=== PATIENT | female | born 1980 | race African-American/Black ===

== ENCOUNTER 2021-10-10 11:11 | Emergency (ER) | payer BC ==
[2021-10-10 11:47] LABS: #Basophils 0.1 10x3/uL (0.0-0.2); #Eosinphils 0.1 10x3/uL (0.0-0.5); #Monocytes 0.9 10x3/uL (0.0-1.1); #Neutrophils 5.3 10x3/uL (1.5-8.4); %Basophils 0.9 % (0.0-2.0); %Eosinophils 1.1 % (0.0-6.0); %Lymphocytes 20.8 % (18.0-47.0); %Monocytes 11.1 % (0.0-10.0); %Neutrophils 65.9 % (40.0-75.0); Hemoglobin 13.5 g/dL (12.0-15.5); Mean Corpuscular HGB CONC 32.8 g/dL (32.0-36.0); Mean Corpuscular Hemoglobin 27.8 pg (27.0-33.0); Mean Corpuscular Volume 84.8 fl (81.6-98.3); Mean Platelet Volume 9.3 fl (7.4-10.4); Platelet Count 306 10x3/uL (150-450); RBC Distribution Width 13.5 % (11.5-14.5); Red Blood Cell (RBC) Count 4.86 10x6/uL (3.90-5.03)
[2021-10-10 12:07] LABS: ALT (SGPT) 16 U/L (8-55); AST (SGOT) 15 U/L (5-34); Albumin 4.3 g/dL (3.5-5.0); Alkaline Phosphatase 79 U/L (40-110); Anion Gap 13 mmol/L (10-20); BUN (Urea Nitrogen) 9 mg/dL (7.0-18.7); Bilirubin, Total 0.7 mg/dL (0.2-1.2); Calc. Creatinine Clearance 0 mL/min (70-130); Calcium 9.6 mg/dL (7.8-10.44); Carbon Dioxide 25 mmol/L (22-29); Chloride 103 mmol/L (98-107); Estimated GFR 102; Globulin 3.7 g/dL (2.4-3.5); Glucose 102 mg/dL (70-105); Lipase 9 U/L (8-78); Potassium 3.8 mmol/L (3.5-5.1); Sodium 137 mmol/L (136-145)
[2021-10-11 22:45] LABS: Campy jejuni + coli by PCR Negative (Negative); STEC Shiga Toxin 1+2 Negative (Negative); Salmonella spp. by PCR Negative (Negative); Shigella spp + EIEC by PCR Negative (Negative)
== END 2021-10-10 13:10 | disposition home or self-care (01) ==
LOC: CSHERS 11:11
DX: A09 Infectious gastroenteritis and colitis, unspecified (principal)
CPT/HCPCS: 36415; 80053; 83690; 85025; 87505; 99284